=== PATIENT | female | born 1945 | race Caucasian/White ===

== ENCOUNTER 2016-11-16 16:45 | Inpatient (IN) | payer OTHER ==
[~2016-11-16] VITALS: Ht 149.9 cm; Wt 99.4 kg
[~2016-11-16 16:45] MED LIST: ASPI81TA27 PO; LOSA50TA6 PO; METF-316 PO; TOPI25TA32 PO
[2016-11-16 17:47] LABS: Albumin 2.8 g/dL (3.4-5.0); BUN/Creatinine Ratio 20.3; Calcium 8.6 mg/dL (8.5-10.1); Magnesium 1.9 mg/dL (1.6-2.6); Potassium 4.3 mmol/L (3.5-5.1)
[2016-11-16 17:52] LABS: Bilirubin, Total 0.7 mg/dL (0.2-1.0)
[2016-11-16 18:25] LABS: Basophils # (auto) 0 uL; Basophils % (auto) 0.3 % (0.0-2.0); Eosinophils # (auto) 0.1 uL; Eosinophils % (auto) 1.8 % (0.0-7.0); Hematocrit 36.8 % (36.0-46.0); Hemoglobin 11.9 g/dL (12.2-16.2); Lymphocytes # (auto) 0.8 uL; Lymphocytes % (auto) 12.8 % (10.0-50.0); Mean Corpuscular Hemoglobin 27.3 pg (28.0-32.0); Mean Corpuscular Hgb Conc. 32.3 g/dL (32.0-36.0); Mean Corpuscular Volume 84.5 fL (80.0-100.0); Mean Platelet Volume 7.9 fL (7.4-10.4); Monocytes # (auto) 0.4 uL; Monocytes % (auto) 6.1 % (0.0-12.0); Platelet Count (auto) 182 10^3/uL (140-450); White Blood Cell 6.3 10^3/uL (4.4-10.8)
[2016-11-16] MEDS ORDERED: IPRATROPIUM BROM 0.5 MG/2.5ML INH SOL NEB ONE (20:00)
[2016-11-16] MEDS ORDERED: ALBUTEROL SULF 2.5 MG/0.5ML(0.5%) NEB SOLN NEB ONE (20:00)
[2016-11-16] MEDS ORDERED: methylPREDNISolone SOD SUCC 125 MG/2 ML VL IV ONE (20:00)
[2016-11-16] MEDS ORDERED: ASPirin 325 MG TAB PO ONE (21:00)
[2016-11-16 21:06] VITALS: BP 144/68
[2016-11-16 21:11] LABS: B-Type Natriuretic Peptide 85.28 pg/mL (0-100)
[2016-11-16 21:18] LABS: Temperature: 21.8 C (20.0-25.0)
[2016-11-17] VITALS (8 sets, daily range): BP systolic 146–168; BP diastolic 68–96
[2016-11-17] MEDS ORDERED: NITROGLYCERIN 0.4 MG SL TAB SL PRN (01:00)
[2016-11-17] MEDS ORDERED: LORazepam 0.5 MG TAB PO PRN ×2 (01:00→20:45)
[2016-11-17] MEDS ORDERED: TEMAZEPAM 15 MG CAP PO PRN (01:00)
[2016-11-17] MEDS ORDERED: ACETAMINOPHEN 325 MG TAB PO PRN (01:00)
[2016-11-17] MEDS ORDERED: MORPHINE SULF INJ 2 MG/ML SYRINGE 1ML IV PRN ×2 (01:00)
[2016-11-17] MEDS ORDERED: DEXTROSE (50%) 50ML SYRG IV PRN (01:00)
[2016-11-17] MEDS ORDERED: ONDANSETRON HCL 4 MG/2 ML VIAL IV PRN (01:00)
[2016-11-17 05:40] LABS: Urine Bilirubin Negative (Negative); Urine Blood 1+ /uL (Negative); Urine Color Yellow (Yellow); Urine Glucose 4+ mg/dL (Normal); Urine Hyaline Cast FEW /lpf (0 - 2); Urine Ketone Negative (Negative); Urine Mucus FEW (None Seen); Urine Nitrite Negative (Negative); Urine RBC 4 /hpf (0 - 4); Urine Squamous Epithelial Cell FEW /hpf (<5); Urine Urobilinogen Normal (Negative)
[2016-11-17] MEDS: ACCU-CHEK COMFORT CURVE STRIP VI SCH ×3 (05:59→17:50)
[2016-11-17] MEDS: glipiZIDE 5 MG TAB PO SCH (05:59)
[2016-11-17] MEDS: InsuLIN REG 1unit/0.01ml Soln (100units/ml) SC SCH ×3 (06:03→17:48)
[2016-11-17] MEDS: ALBUTEROL SULF 2.5 MG/0.5ML(0.5%) NEB SOLN NEB PRN (09:43)
[2016-11-17] MEDS: IPRATROPIUM BROM 0.5 MG/2.5ML INH SOL NEB PRN (09:43)
[2016-11-17] MEDS: LOSARTAN POTASSIUM 50 MG TAB PO SCH ×2 (10:00→10:08)
[2016-11-17] MEDS ORDERED: ENOXAPARIN SOD 40 MG/0.4 ML SYRINGE SC SCH (10:00)
[2016-11-17] MEDS: ASPirin 81 mg TAB PO SCH (10:06)
[2016-11-17] MEDS: methylPREDNISolone SOD SUCC 125 MG/2 ML VL IV SCH ×2 (10:06→21:37)
[2016-11-17] MEDS: FAMOTIDINE 20 MG TAB PO SCH ×2 (10:07→21:37)
[2016-11-17] MEDS ORDERED: ATENOLOL 50 MG TAB PO ONE (11:30)
[2016-11-17] MEDS ORDERED: hydrALAZINE HCL 20 MG/ML VL IV PRN (12:15)
[2016-11-17 12:17] LABS: Basophils # (auto) 0 uL; Eosinophils # (auto) 0 uL; Hematocrit 35.4 % (36.0-46.0); Hemoglobin 11.4 g/dL (12.2-16.2); Lymphocytes # (auto) 0.3 uL; Mean Corpuscular Hemoglobin 27.1 pg (28.0-32.0); Mean Corpuscular Hgb Conc. 32.3 g/dL (32.0-36.0); Mean Corpuscular Volume 83.9 fL (80.0-100.0); Mean Platelet Volume 8.9 fL (7.4-10.4); Monocytes # (auto) 0.2 uL; Monocytes % (auto) 2.7 % (0.0-12.0); Neutrophils # (auto) 5.9 uL; Neutrophils % (auto) 92.3 % (37.0-80.0); Platelet Count (auto) 182 10^3/uL (140-450); Red Cell Distribution Width 16.4 % (11.6-16.0); White Blood Cell 6.4 10^3/uL (4.4-10.8)
[2016-11-17 12:40] LABS: Calcium 8.9 mg/dL (8.5-10.1); Magnesium 1.8 mg/dL (1.6-2.6); Potassium 4.1 mmol/L (3.5-5.1)
[2016-11-17] MEDS: ENOXAPARIN SOD 40 MG/0.4 ML SYRINGE SC SCH (21:38)
[2016-11-17] MEDS ORDERED: TOPIRAMATE 25 MG TAB PO SCH (22:00)
[2016-11-18] MEDS: InsuLIN REG 1unit/0.01ml Soln (100units/ml) SC SCH ×4 (00:43→17:26)
[2016-11-18] MEDS: ACCU-CHEK COMFORT CURVE STRIP VI SCH ×4 (00:43→17:26)
[2016-11-18 05:20] LABS: Basophils # (auto) 0 uL; DEFINITIVE VIEW TRANSMISSION; Eosinophils # (auto) 0 uL; Lymphocytes # (auto) 0.5 uL; Lymphocytes % (auto) 4.2 % (10.0-50.0); Mean Corpuscular Hemoglobin 26.6 pg (28.0-32.0); Mean Corpuscular Hgb Conc. 31.6 g/dL (32.0-36.0); Mean Corpuscular Volume 84.3 fL (80.0-100.0); Mean Platelet Volume 8.3 fL (7.4-10.4); Monocytes # (auto) 0.3 uL; Monocytes % (auto) 2.9 % (0.0-12.0); Neutrophils # (auto) 9.9 uL; Neutrophils % (auto) 92.9 % (37.0-80.0); Platelet Count (auto) 200 10^3/uL (140-450); Red Cell Distribution Width 16.1 % (11.6-16.0); White Blood Cell 10.7 10^3/uL (4.4-10.8)
[2016-11-18 05:27] VITALS: BP 166/81
[2016-11-18 05:30] VITALS: BP 157/82
[2016-11-18 05:47] LABS: BUN/Creatinine Ratio 28.9; Calcium 9.1 mg/dL (8.5-10.1); Magnesium 2.1 mg/dL (1.6-2.6); Potassium 4.7 mmol/L (3.5-5.1)
[2016-11-18] MEDS: glipiZIDE 5 MG TAB PO SCH (06:12)
[2016-11-18 09:22] VITALS: BP 151/63
[2016-11-18] MEDS: FAMOTIDINE 20 MG TAB PO SCH (09:39)
[2016-11-18] MEDS: ENOXAPARIN SOD 40 MG/0.4 ML SYRINGE SC SCH (09:39)
[2016-11-18] MEDS: methylPREDNISolone SOD SUCC 125 MG/2 ML VL IV SCH (09:40)
[2016-11-18] MEDS: ASPirin 81 mg TAB PO SCH (09:53)
[2016-11-18] MEDS ORDERED: ATENOLOL 50 MG TAB PO SCH (10:00)
[2016-11-18] MEDS ORDERED: ADENOSINE 83 MG in GIVE UN-DILUTED 0 ML IV ONE (10:45)
[2016-11-18] MEDS ORDERED: IPRATROPIUM BROM 0.5 MG/2.5ML INH SOL ONE (12:24)
[2016-11-18] MEDS ORDERED: ALBUTEROL SULF 2.5 MG/0.5ML(0.5%) NEB SOLN ONE (12:24)
[2016-11-18] MEDS ORDERED: ATEN50TA PO (12:33)
[2016-11-18] MEDS ORDERED: CLON0.1T PO (12:33)
[2016-11-18] MEDS ORDERED: FURO40TA4 PO (12:33)
[2016-11-18] MEDS ORDERED: OMEP20CA5 PO (12:33)
[2016-11-18] MEDS ORDERED: FAMO-12 PO (12:33)
[2016-11-18] MEDS ORDERED: ALBUAER3 IN (12:33)
[2016-11-18 13:00] VITALS: BP 164/76
[2016-11-18] MEDS ORDERED: ASPI81CH43 PO (13:04)
[2016-11-18] MEDS ORDERED: METH4PAK PO (13:04)
[2016-11-18] MEDS ORDERED: IPRIH IN (13:04)
[2016-11-18] MEDS ORDERED: ATOR20TA50 PO (13:04)
[2016-11-18] MEDS ORDERED: LISI-275 PO (13:05)
[2016-11-18] MEDS ORDERED: ATORVASTATIN 20 MG TAB PO SCH (13:15)
[2016-11-18 13:24] LABS: Cholesterol 317 mg/dL (<200); HDL Cholesterol 80 mg/dL (40-59); LDL Cholesterol 200 mg/dL (<100); Triglycerides 168 mg/dL (<150)
[2016-11-18] MEDS: IPRATROPIUM BROM 0.5 MG/2.5ML INH SOL NEB PRN (14:40)
[2016-11-18] MEDS: ALBUTEROL SULF 2.5 MG/0.5ML(0.5%) NEB SOLN NEB PRN (14:40)
[2016-11-18 15:30] VITALS: BP 133/60
[2016-11-18 16:51] VITALS: BP 130/61
[2016-11-18] MEDS ORDERED: methylPREDNISolone SOD SUCC 125 MG/2 ML VL IV SCH (22:00)
[2016-11-18] MEDS ORDERED: methylPREDNISolone SOD SUCC 40 MG/ML VL IV SCH (22:00)
== END 2016-11-18 20:00 | disposition home or self-care (01) | DRG 280 ==
LOC: ER 16:45 → EDUNIT# 16:45 → TELE 16:46 → TELE-CENTR 11-17 02:00
PROVIDERS: ADMIT Internal Medicine; ATTEND Internal Medicine
PROC: 5A09357 Assistance with Respiratory Ventilation, Less than 24 Consecutive Hours, Continuous Positive Airway Pressure (ICD-10-PCS; principal; 2016-11-16)
DX: I21.4 Non-ST elevation (NSTEMI) myocardial infarction (principal); J96.21 Acute and chronic respiratory failure with hypoxia; E43 Unspecified severe protein-calorie malnutrition; I50.43 Acute on chronic combined systolic (congestive) and diastolic (congestive) heart failure; J96.22 Acute and chronic respiratory failure with hypercapnia; J44.1 Chronic obstructive pulmonary disease with (acute) exacerbation; G43.909 Migraine, unspecified, not intractable, without status migrainosus; K57.90 Diverticulosis of intestine, part unspecified, without perforation or abscess without bleeding; E11.9 Type 2 diabetes mellitus without complications; I11.0 Hypertensive heart disease with heart failure; E66.01 Morbid (severe) obesity due to excess calories; G47.33 Obstructive sleep apnea (adult) (pediatric); I25.10 Atherosclerotic heart disease of native coronary artery without angina pectoris; Z80.0 Family history of malignant neoplasm of digestive organs; Z82.0 Family history of epilepsy and other diseases of the nervous system; Z83.3 Family history of diabetes mellitus; Z85.3 Personal history of malignant neoplasm of breast; Z87.891 Personal history of nicotine dependence; Z90.13 Acquired absence of bilateral breasts and nipples; Z95.0 Presence of cardiac pacemaker; Z99.81 Dependence on supplemental oxygen; Z88.6 Allergy status to analgesic agent; Z88.5 Allergy status to narcotic agent; Z88.0 Allergy status to penicillin; Z79.82 Long term (current) use of aspirin
CPT/HCPCS: 36415; 36600; 71020; 74176; 80048; 80053; 80061; 81001; 82378; 82805; 82962; 83605; 83735; 83880; 84484; 85025; 86304; 87040; 93005; 93306; 94640; 94660; 96374; 99291; J0153; J1815

== ENCOUNTER 2017-04-08 21:14 | Emergency (ER) | payer OTHER ==
[~2017-04-08] VITALS: Ht 152.4 cm; Wt 77.1 kg
[~2017-04-08 21:14] MED LIST changes: +ALBUAER3 IN; +ASPI81CH43 PO; -ASPI81TA27 PO; +ATEN50TA PO; +ATOR20TA50 PO; +FAMO-12 PO; +FURO40TA4 PO; +IPRIH IN; +LEVO500T21 PO; +LISI-275 PO; -LOSA50TA6 PO; -METF-316 PO; +METR500T PO; +OMEP20CA74 PO; -TOPI25TA32 PO
[2017-04-08 21:56] LABS: Basophils # (auto) 0 uL; Basophils % (auto) 0.4 % (0.0-2.0); CONDITION Y; Eosinophils # (auto) 0.3 uL; Eosinophils % (auto) 3.9 % (0.0-7.0); Hematocrit 35.5 % (36.0-46.0); Hemoglobin 11.7 g/dL (12.2-16.2); Lymphocytes # (auto) 1.6 uL; Lymphocytes % (auto) 19.8 % (10.0-50.0); Mean Corpuscular Hemoglobin 27.1 pg (28.0-32.0); Mean Corpuscular Hgb Conc. 32.8 g/dL (32.0-36.0); Mean Corpuscular Volume 82.4 fL (80.0-100.0); Mean Platelet Volume 8.5 fL (7.4-10.4); Monocytes # (auto) 0.6 uL; Monocytes % (auto) 6.9 % (0.0-12.0); Neutrophils # (auto) 5.7 uL; Platelet Count (auto) 217 10^3/uL (140-450); Red Cell Distribution Width 15.1 % (11.6-16.0); White Blood Cell 8.3 10^3/uL (4.4-10.8)
[2017-04-08 22:08] LABS: Albumin 3.2 g/dL (3.4-5.0); Calcium 8.6 mg/dL (8.5-10.1); Potassium 4.6 mmol/L (3.5-5.1)
[2017-04-08 22:18] LABS: Bilirubin, Total 0.5 mg/dL (0.2-1.0); Total Protein 7.8 g/dL (6.4-8.2)
[2017-04-08 22:20] LABS: INR 0.96 (0.9-1.15); Prothrombin Time 10.5 sec (9.37-12.3)
[2017-04-09 01:47] VITALS: BP 157/89
== END 2017-04-09 01:59 | disposition home or self-care (01) ==
LOC: EDBD 21:14 → ER 21:17
DX: R04.0 Epistaxis (principal); E11.65 Type 2 diabetes mellitus with hyperglycemia; I50.9 Heart failure, unspecified; I11.0 Hypertensive heart disease with heart failure; E78.5 Hyperlipidemia, unspecified; J44.9 Chronic obstructive pulmonary disease, unspecified; I25.2 Old myocardial infarction; Z87.891 Personal history of nicotine dependence; Z90.49 Acquired absence of other specified parts of digestive tract; Z90.710 Acquired absence of both cervix and uterus; Z88.0 Allergy status to penicillin; Z88.6 Allergy status to analgesic agent; Z91.041 Radiographic dye allergy status
CPT/HCPCS: 36415; 71020; 80053; 84484; 85025; 85610; 93005

== ENCOUNTER 2017-04-12 21:21 | Emergency (ER) | payer OTHER ==
[~2017-04-12] VITALS: Ht 152.4 cm; Wt 77.1 kg
[2017-04-13] MEDS ORDERED: ONDANSETRON ODT 4 MG TAB PO ONE
[2017-04-13 00:07] LABS: Basophils # (auto) 0.1 uL; Basophils % (auto) 1.5 % (0.0-2.0); DEFINITIVE SEE PRINTOUT; Eosinophils # (auto) 0.2 uL; Eosinophils % (auto) 2.5 % (0.0-7.0); Hematocrit 35.9 % (36.0-46.0); Hemoglobin 11.6 g/dL (12.2-16.2); Lymphocytes # (auto) 1.9 uL; Lymphocytes % (auto) 20.4 % (10.0-50.0); Mean Corpuscular Hemoglobin 26.8 pg (28.0-32.0); Mean Corpuscular Hgb Conc. 32.4 g/dL (32.0-36.0); Mean Corpuscular Volume 82.6 fL (80.0-100.0); Mean Platelet Volume 8.2 fL (7.4-10.4); Monocytes # (auto) 0.7 uL; Monocytes % (auto) 7.2 % (0.0-12.0); Neutrophils # (auto) 6.5 uL; Neutrophils % (auto) 68.4 % (37.0-80.0); Platelet Count (auto) 228 10^3/uL (140-450); Red Cell Distribution Width 13.6 % (11.6-16.0); White Blood Cell 9.4 10^3/uL (4.4-10.8)
[2017-04-13 00:10] LABS: INR 0.98 (0.9-1.15); Partial Thromboplastin Time 31.6 sec (22.64-33.71); Prothrombin Time 10.7 sec (9.37-12.3)
== END 2017-04-13 02:29 | disposition home or self-care (01) ==
LOC: EDUNIT# 21:21 → EDBD 21:21 → ER 21:31
DX: R04.0 Epistaxis (principal); J32.9 Chronic sinusitis, unspecified; I11.0 Hypertensive heart disease with heart failure; I50.9 Heart failure, unspecified; J44.9 Chronic obstructive pulmonary disease, unspecified; E11.9 Type 2 diabetes mellitus without complications; E78.5 Hyperlipidemia, unspecified; I25.2 Old myocardial infarction; Z90.49 Acquired absence of other specified parts of digestive tract; Z90.710 Acquired absence of both cervix and uterus; Z87.891 Personal history of nicotine dependence; Z79.82 Long term (current) use of aspirin; Z79.899 Other long term (current) drug therapy; Z88.0 Allergy status to penicillin; Z88.6 Allergy status to analgesic agent; Z91.041 Radiographic dye allergy status
CPT/HCPCS: 36415; 70450; 82962; 85025; 85610; 85730; 99285; Q0162